=== PATIENT | female | born 1940 | race Caucasian/White ===

== ENCOUNTER 2017-01-21 13:30 | Observation (INO) | payer MEDICARE ==
[~2017-01-21] VITALS: Ht 170.2 cm; Wt 147.0 kg
[2017-01-21] VITALS (7 sets, daily range): BP systolic 107–160; BP diastolic 63–75; PULSE 54–66; RESP 16; O2SAT 95–98
[~2017-01-21 13:30] MED LIST: ALPR0.5T8 PO; ASPI-973 PO; ATEN50TA PO; CYCL10TA9 PO; DICY20TA10 PO; DOCU50CA7 PO; FENT1PAT7 TRANSDERM; FENT1PAT9 TOP; FLUT50DI IH; FUR20 PO; HYDR-3740 PO; LOSA100T29 PO; MONT10TA23 PO; MYCC TOP; NAPR220C11 PO; NITR0.4T SL; ONDA-54 SL; PANT40TA3 PO; PARO20TA5 PO; POLY17PO6 PO; PRAM0.5T10 PO; PRAV40TA PO; SULF1TAB34 PO
--- NOTE | 2017-01-21 13:54 | ED.REPORT ---
HPI-Dyspnea / Wheezing Date of Service Jan 21, 2017 ED Provider: Selvin Orr MD 76 y/o female on Aspirin with a hx of CAD (LAD stent placed), catheterization with MOD disease in 04/2016 presents to the ED complaining of shortness of breath that lasts a few minutes, onset 2 days ago. The pt went to Dr. Montes for the same complaint and was sent to the ED for SOB workup and admission. The pt states her noticed it yesterday but she doesn't recall because she has short term memory loss. However, she remembers waking up today with SOB. She could not go back to sleep due to dyspnea. She states her sx worsen when laying down and with exertion, "but it can happen when I'm just sitting too". Associated sx include nausea, mild lower extremity edema and right back pain for a few weeks. She denies chest pain, fever, hematemesis, vomit and diaphoresis. She states she feels significantly better in ED due to nasal canula. Nursing Notes Stated Complaint: SOB/SENT BY CARDIOLOGY OFFICE Chief Complaint: Respiratory Distress Nursing Notes Reviewed: Yes Allergies: Coded Allergies: Penicillins (Verified Allergy, Unknown, RASH, 01/21/17) celecoxib (Verified Allergy, Unknown, 01/21/17) clindamycin (Verified Allergy, Unknown, PALPITATIONS, 01/21/17) codeine (Verified Allergy, Unknown, 01/21/17) erythromycin base (Verified Allergy, Unknown, 01/21/17) gabapentin (Verified Allergy, Unknown, Dizziness, 01/21/17) lisinopril (Verified Allergy, Unknown, COUGH, 01/21/17) meloxicam (Verified Allergy, Unknown, SWELLING, 01/21/17) simvastatin (Verified Allergy, Unknown, TIRED, 01/21/17) Scheduled Aspirin (Aspirin) 81 Mg Tablet 81 MG PO DAILY Atenolol (Atenolol) 100 Mg Tablet 100 MG PO BID Fentanyl 25 mcg/hr Patch (Fentanyl 25 mcg/hr Patch) 1 Each Patch.td72 1 PATCH TRANSDERM Q3D Fluticasone Propionate (Fluticasone Propionate Nasal) 16 Gm [place].susp 2 SPRAY NASAL DAILY Losartan Potassium (Losartan Potassium) 100 Mg Tablet 100 MG PO DAILY Montelukast (Montelukast) 10 Mg Tablet 10 MG PO HS Nystatin (Nystatin) 60 Applic/15 Gm Cream 1 APPLIC TOP TID Pantoprazole DR (Pantoprazole DR) 40 Mg Tablet.dr 40 MG PO DAILY Paroxetine (Paroxetine) 20 Mg Tablet 20 MG PO HS Polyethylene Glycol 3350 (Miralax) 17 Gm Powd.pack 17 GM PO DAILY Pramipexole Dihydrochloride (Pramipexole Dihydrochloride) 0.5 Mg Tablet 0.5 MG PO HS Pravastatin (Pravastatin) 80 Mg Tablet 80 MG PO DAILY Sulfamethoxazole/Trimeth 400-80 mg (Bactrim 400-80 mg) 1 Each Tablet 0.5 TABLET PO DAILY Scheduled PRN Alprazolam (Alprazolam) 0.5 Mg Tablet 0.5 MG PO BID PRN PRN For Anxiety Carboxymethylcellulose Sodium (Refresh Tears) 15 Ml Drops 1-2 DROP BOTH_EYES QID PRN PRN For Eye Irritation Dicyclomine (Dicyclomine) 20 Mg Tablet 20 MG PO TID PRN PRN For GI Cramps Furosemide (Furosemide) 20 Mg Tab 20 MG PO DAILY PRN PRN wt.gain>3lbs Hydrocodone-Acetaminophen 10-325 mg (Hydrocodone-Acetaminophen 10-325 mg) 1 Each Tablet 1-2 TABLET PO TID PRN PRN For Pain Nitroglycerin SL (Nitrostat) 0.4 Mg Tab.subl 0.4 MG SL Q5MIN PRN PRN For Chest Pain Ondansetron (Ondansetron) 8 Mg Tablet 8 MG SL TID PRN PRN For Nausea General Time Seen by MD: 13:48 Chief Complaint Shortness of breath Hx Obtained From: Patient Arrived By: Walk-in Sudden in Onset?: Yes Onset Occurred: 2 days ago Symptom Duration: Since onset Severity: Current: No pain currently Severity: Maximum: No pain Recent Healthcare: Recent doctor visit Similar Sx Previous: No Past Medical History Past Medical History Edema Diverticulitis Chronic back pain anxiety Myocardial infarction Reports: GERD, Hypertension Reports: Depression, Urinary tract infection Past Surgical History hysterectomy Smoking History Former Smoker, Light Tobacco Smoker Social History Alcohol Use: Denies alcohol use Drug Use: Denies drug use Ambulatory Status Independent Review of Systems Constitutional: Denies: Fever Respiratory: Reports: Shortness of breath Cardiovascular: Reports: Edema (mild), Denies: Chest pain Musculoskeletal: Reports: Back pain (right side) Skin: Denies Diaphoresis Complete sys rev & neg: except as marked. GI: Reports: Nausea, Denies: Hematemesis, Vomiting Physical Exam Initial Vital Signs Vital Signs (First) Date Time Temp Pulse Resp B/P Pulse Ox O2 Delivery O2 Flow Rate FiO2 01/21/17 13:43 36.8 61 16 160/69 95 Room Air 01/21/17 15:24 2 Initial VS: Reviewed Head / Eyes: Atraumatic, Normocephalic Abdomen / GI: Soft, Non-tender Extremities: Vascular intact, Neuro intact, No tenderness Skin: Warm, Dry, No cyanosis Neurologic: Alert, Oriented, Nonfocal General/Constitutional: Awake, Alert, Cooperative Neck: Atraumatic, Supple, Full range of motion Respiratory / Chest: Atraumatic, No respiratory distress, No wheezing Diminished breath sounds on the left. Cardiovascular: Heart rate NL, Regular rhythm, Heart sounds NL, No gallop, No murmurs, No rubs Trace bilateral lower extremity edema. Interpretation & Diagnostics Lab Results Interpretation Result Diagram: 01/21/17 1415 01/21/17 1415 Test 01/21/17 14:15 01/21/17 14:16 White Blood Count 9.3th/mm3 (3.8-10.1) Red Blood Count 4.65mil/mm3 (3.90-5.20) Hemoglobin 13.6g/dL (12.0-15.6) Hematocrit 42.3% (35.0-46.0) Mean Corpuscular Volume 91.0fL (81-100) Mean Corpuscular Hemoglobin 29.2pg (27.0-35.0) Mean Corpuscular Hemoglobin Concent 32.2% (32.0-37.0) Red Cell Distribution Width 14.3% (12.3-15.4) Platelet Count 186bil/L (150-400) Neutrophils (%) (Auto) 77.3% (40-74) Lymphocytes (%) (Auto) 14.4% (14-46) Monocytes (%) (Auto) 6.8% (4-12) Eosinophils (%) (Auto) 1.1% (0-5) Basophils (%) (Auto) 0.2% (0-3) Prothrombin Time 11.5sec (8.1-12.5) Prothromb Time International Ratio 1.07ratio D-Dimer 2.04mg/L FEU (<0.50) Sodium Level 140mEq/L (134-144) Potassium Level 4.6mEq/L (3.5-5.2) Chloride Level 101mEq/L (97-108) Carbon Dioxide Level 25mmol/L (18-29) Blood Urea Nitrogen 12mg/dL (8-27) Creatinine 0.49mg/dL (0.57-1.00) Estimat Glomerular Filtration Rate 177mL/min (>59) Glucose Level 114mg/dL (60-99) Calcium Level 9.1mg/dL (8.5-10.1) Magnesium Level 1.9mg/dL (1.6-2.6) Total Bilirubin 0.5mg/dL (0.0-1.2) Aspartate Amino Transf (AST/SGOT) 22U/L (0-50) Alanine Aminotransferase (ALT/SGPT) 15U/L (0-32) Alkaline Phosphatase 68U/L (25-165) Troponin T < 0.010ug/L (0.0-0.011) Pro-B-Type Natriuretic Peptide 486.4pg/mL (0-738) Total Protein 7.0g/dL (6.4-8.4) Albumin 3.8g/dL (3.4-5.0) Hold Spence Top Tube Received (Received) ECG Interpretation ECG Interpretation: Normal sinus rhtyhm. Rate 59. T-wave inversion in AVR and V1 Time: 14:24 Interpreted by: ED physician X-Ray Chest Interpretation Chest Xray Interpretation: IMPRESSION: Left basilar infiltrate or atelectasis. Dictated by: Brad Cesar M.D. on 01/21/2017 at 14:11 Transcribed by: GYAE on 01/21/2017 at 14:18 Approved by: Brad Cesar M.D. on 01/21/2017 at 15:29 View: Portable, 1 view Interpretation / Wet Read by: Interpret - Radiologist CT Chest Interpretation IMPRESSION: 1. No visualized pulmonary embolism. 2. Lungs are clear. Dictated by: Aimee Parra M.D. on 01/21/2017 at 15:19 Approved by: Aimee Parra M.D. on 01/21/2017 at 15:40 Study type: CT pulm angiogram Interpretation / Wet Read by: Interpret - Radiologist Re-Eval/Medical Decision Med Decision/Clinical Course 76-year-old female history of CAD with stent placed 7 by cardiology for admission for dyspnea times several days. Patient reports dyspnea while supine and on activity. Last catheterization with moderate disease April 2016. Troponins are negative. D-dimer is elevated but no PE on CT. Patient will be admitted for ACS rule out. Source of Hx: Old records Re-Evaluation/Progress : Time of Eval: 16:00 Re-Evaluation/Progress Note: Rechecked pt. Discussed lab results, imaging results, diagnosis and plan to admit. Pt understands and agrees with the plan for admission. All questions addressed. Consultation : Referral / Consult Name: Jonathan Bundy MD Consulted With: Hospitalist Call Returned at: 16:34 [employer] Plant Operator: Will see patient, Agrees with eval, Agrees with plan, Accepts admit Counseled Regarding: Diagnosis, Lab results, Need for admission Discharge & Departure Impression: Primary Impression: Chest pain Disposition: ADMITTED TO HOSPITAL Discharge Condition All VS Reviewed: Yes Referrals: Alejandro Rodriguez MD (PCP) Scribe Attestation Portions of this note were transcribed by Rogerio Barahona. I, , personally performed the history, physical exam and medical decision- making;I reviewed and confirmed the accuracy of the information in the transcribed note. Signed by Zhao Rivera. 01/21/17 16:35 copies to: Alejandro Rodriguez MD, Ben M MD Jan 21, 2017 13:54 Rogerio Barahona Jan 21, 2017 14:51
--- NOTE | 2017-01-21 14:19 | DRSVH ---
PROCEDURE: X-RAY CHEST ONE VIEW, PORTABLE ([id number]) INDICATIONS: 76 year-old woman with increasing dyspnea. TECHNIQUE: One view of the chest was acquired. COMPARISON: [facility], CR, CHEST 2VW, 11/04/2016, 2:11 PM. [facility], CR, XR CHEST 1VW (PORTABLE), 01/17/2016, 10:41. FINDINGS: Surgical changes and devices: None. Lungs and pleura: Left basilar opacity may be infiltrate or atelectasis. No pleural effusions or pne umothorax. Lungs are clear. Mediastinum: Mediastinal contours appear normal. Heart size is normal. Bones and chest wall: No suspicious bony lesions. Overlying soft tissues appear unremarkable. IMPRESSION: Left basilar infiltrate or atelectasis. Dictated by: Brad Cesar M.D. on 01/21/2017 at 14:11 Transcribed by: GAYE on 01/21/2017 at 14:18 Approved by: Brad Cesar M.D. on 01/21/2017 at 15:29
[2017-01-21 14:25] LABS: BASOPHILS % (AUTO) 0.2 % (0-3); EOSINOPHILS % (AUTO) 1.1 % (0-5); MONOCYTES % (AUTO) 6.8 % (4-12); Mean Corpuscular Hemoglobin 29.2 pg (27.0-35.0); NEUTROPHILS % (AUTO) 77.3 % (40-74); Platelet Count 186 bil/L (150-400)
[2017-01-21 14:35] LABS: D-Dimer 2.04 mg/L FEU (<0.50); INR 1.07 ratio
[2017-01-21 14:46] LABS: TROPONIN T < 0.010 ug/L (0.0-0.011)
[2017-01-21 14:53] LABS: Magnesium 1.9 mg/dL (1.6-2.6)
[2017-01-21] MEDS ORDERED: ATEN100T PO (15:26)
[2017-01-21] MEDS ORDERED: FLUT16SP NASAL (15:26)
[2017-01-21] MEDS ORDERED: PRAV80TA2 PO (15:28)
[2017-01-21] MEDS ORDERED: CARB15DR74 BOTH_EYES (15:29)
[2017-01-21] MEDS ORDERED: SULF1TAB34 PO (15:29)
--- NOTE | 2017-01-21 15:41 | DRSVH ---
PROCEDURE: CT ANGIO CHEST PULMONARY EMBOLISM ([id number]) INDICATIONS: dyspnea ddimer 2 TECHNIQUE: After the administration of intravenous contrast, 2 mm thick sections acquired from the pulmonary api mariela to the posterior costophrenic angles. 3-dimensional maximum intensity projection (MIP) coronal a nd sagittal reformats were then acquired through the thorax. For radiation dose reduction, the follo wing was used: automated exposure control, adjustment of mA and/or kV according to patient size. COMPARISON: [facility], CT, CT ANGIO CHEST PE, 01/17/2016, 12:59. FINDINGS: Image quality: Excellent. Pulmonary arteries: Pulmonary arteries are normal in size, and demonstrate no intraluminal filling d efects to suggest central pulmonary embolism. Lungs and pleura: Lungs are clear. No pleural effusions or pneumothorax. Central and peripheral ai rways are patent. Mediastinum: Heart size is normal, without pericardial effusion. No mediastinal or hilar adenopathy . Thoracic aorta is normal in caliber and enhancement. Esophagus is normal in caliber, without hiat al hernia. Bones and chest wall: No suspicious bony lesions. Ribs and thoracic spine appear intact throughout. Thyroid gland is unremarkable. No axillary or supraclavicular adenopathy. Abdomen: Visualized upper abdominal solid organs appear normal in the early arterial phase of enhanc ement. IMPRESSION: 1. No visualized pulmonary embolism. 2. Lungs are clear. Dictated by: Aimee Parra M.D. on 01/21/2017 at 15:19 Approved by: Aimee Parra M.D. on 01/21/2017 at 15:40
[2017-01-21] MEDS ORDERED: cefTRIAXone Inj 2,000 MG in Dextrose 5% Minibag Plus 50 ML IV ONE (15:55)
[2017-01-21] MEDS ORDERED: Doxycycline Inj 100 MG in Dextrose 5% 100 ML IV ONE (15:55)
[2017-01-21] MEDS ORDERED: Alum-Mag Hydrox-Simeth 30 mL Suspension PO PRN ×2 (16:35→19:20)
[2017-01-21] MEDS ORDERED: Ondansetron 2 mg/mL 2 mL Inj IVPUSH PRN ×2 (16:35→19:20)
--- NOTE | 2017-01-21 18:44 | NUR ---
Admit: [place] [facility] [place] @ approx 1745. Ambulated to bed. Bed scale weight obtained. Telemetry #14, SB 50s per radiotelegraph operator servicer. Complains of shortness of breath, placed on O2 3L via NC, O2 sat 96%. VSS. Denies pain. Alert & oriented. Bariatric bed, bed rails up x3, low and locked position, call light within reach.
[2017-01-21] MEDS ORDERED: Furosemide 10 mg/mL 4 mL Inj IVPUSH ONE (19:20)
[2017-01-21] MEDS ORDERED: Polyethylene Glycol (PEG) 17 Gm Powder PO PRN (19:20)
--- NOTE | 2017-01-21 19:39 | PCM.HPMED ---
Subjective Date of Service Jan 21, 2017 Primary Provider: Admitting Physician: Jonathan Bundy MD Primary Care Physician: Alejandro Rodriguez MD Attending Physician: Jonathan Bundy MD Chief Complaint: Dyspnea History of Present Illness: 76-year-old woman with a history of MA with LAD stent placed in April 2015, obstructive sleep apnea, diabetes, hypertension, short-term memory loss and chronic back pain who presents emergency department due to ongoing shortness of breath that started 01/19. Per patient, the patient awoke this morning gasping for air and became increasingly dyspneic she went to the bathroom and back to her bed. She admits to being more orthopneic lately, increased weight gain of 18 pounds, increase in edema, and decreasing exercise tolerance. Patient also endorses some intermittent mild to moderate epigastric pain. Patient denies fevers, chills, nausea, vomiting, or chest pain. Patient states that she feels much better with the oxygen on. Unsurprisingly, the patient is unable to identify an etiology for her short-term memory loss. Patient has had one episode of this before, approximately 3 months ago and underwent evaluation for heart failure with a reassuring echo with ejection fraction of 60% with no motion abnormalities or valvular disease. Patient is a [id number] history of smoking notes patient has been having progressively worsening dyspnea for the last 6 months. She uses CPAP during sleep religiously but not during nap times. notes she might have mask leak. Did not have any repeat sleep test or mask refitting in the last 4 years In the ED patient was afebrile and vitals were stable except for some hypertension of 136/67. Lab work was mostly benign except for a glucose of mildly elevated at 114. Troponin negative, pro BMP within limits. Review of chest x-ray and CT reveals questionable engorged vasculature, but no PE Review of Systems: Complete review of symptoms performed; pertinent positives and negatives per history of present illness Allergies Coded Allergies: Penicillins (Verified Allergy, Unknown, RASH, 01/21/17) celecoxib (Verified Allergy, Unknown, 01/21/17) clindamycin (Verified Allergy, Unknown, PALPITATIONS, 01/21/17) codeine (Verified Allergy, Unknown, 01/21/17) erythromycin base (Verified Allergy, Unknown, 01/21/17) gabapentin (Verified Allergy, Unknown, Dizziness, 01/21/17) lisinopril (Verified Allergy, Unknown, COUGH, 01/21/17) meloxicam (Verified Allergy, Unknown, SWELLING, 01/21/17) simvastatin (Verified Allergy, Unknown, TIRED, 01/21/17) Home Medications Aspirin (Aspirin) 81 Mg Tablet 81 MG PO DAILY Atenolol (Atenolol) 100 Mg Tablet 100 MG PO BID Fentanyl 25 mcg/hr Patch (Fentanyl 25 mcg/hr Patch) 1 Each Patch.td72 1 PATCH TRANSDERM Q3D Fluticasone Propionate (Fluticasone Propionate Nasal) 16 Gm [place].susp 2 SPRAY NASAL DAILY Losartan Potassium (Losartan Potassium) 100 Mg Tablet 100 MG PO DAILY Montelukast (Montelukast) 10 Mg Tablet 10 MG PO HS Nystatin (Nystatin) 60 Applic/15 Gm Cream 1 APPLIC TOP TID Pantoprazole DR (Pantoprazole DR) 40 Mg Tablet.dr 40 MG PO DAILY Paroxetine (Paroxetine) 20 Mg Tablet 20 MG PO HS Polyethylene Glycol 3350 (Miralax) 17 Gm Powd.pack 17 GM PO DAILY Pramipexole Dihydrochloride (Pramipexole Dihydrochloride) 0.5 Mg Tablet 0.5 MG PO HS Pravastatin (Pravastatin) 80 Mg Tablet 80 MG PO DAILY Sulfamethoxazole/Trimeth 400-80 mg (Bactrim 400-80 mg) 1 Each Tablet 0.5 TABLET PO DAILY Alprazolam (Alprazolam) 0.5 Mg Tablet 0.5 MG PO BID PRN PRN For Anxiety Carboxymethylcellulose Sodium (Refresh Tears) 15 Ml Drops 1-2 DROP BOTH_EYES QID PRN PRN For Eye Irritation Dicyclomine (Dicyclomine) 20 Mg Tablet 20 MG PO TID PRN PRN For GI Cramps Furosemide (Furosemide) 20 Mg Tab 20 MG PO DAILY PRN PRN wt.gain>3lbs Hydrocodone-Acetaminophen 10-325 mg (Hydrocodone-Acetaminophen 10-325 mg) 1 Each Tablet 1-2 TABLET PO TID PRN PRN For Pain Nitroglycerin SL (Nitrostat) 0.4 Mg Tab.subl 0.4 MG SL Q5MIN PRN PRN For Chest Pain Ondansetron (Ondansetron) 8 Mg Tablet 8 MG SL TID PRN PRN For Nausea PMH Diverticulitis Chronic back pain anxiety Myocardial infarction GERD Hypertension Depression Urinary tract infection Surgical History hysterectomy Family History Patient is unable to remember family history Social History Hx Alcohol Use: No Hx Substance Use: No Hx Tobacco Use: Yes ([id number]-[id number] history) Smoking Status: Former Smoker, Light Tobacco Smoker Living Arrangement: with Family Exam Vital Signs Vital Sign - Last Date Time Temp Pulse Resp B/P Pulse Ox O2 Delivery O2 Flow Rate FiO2 01/21/17 18:33 Supplement Oxygen 01/21/17 18:06 56 01/21/17 17:50 36.5 16 123/72 96 3.00 Exam General: Obese, pleasant, age-appropriate woman in no acute distress HEENT: PERRLA, EOMI, mucous membranes moist, no JVD noted likely due to obesity Lymph: Left submandibular lymphadenopathy but otherwise normal Cardio: Regular rate and rhythm no murmurs appreciated Respiratory: CTA bilaterally with crackles at bases Abdomen: Super morbidly obese, soft, positive bowel sounds all of these are distant due to girth Extremities: Marked pitting edema lower extremities with increased soft tissue around the knee making it difficult to appreciate advancing edema Skin: No rashes Psych: Appropriate mood and affect although easily removed from her current train of thought Neuro: Grossly intact throughout; cranial nerves II through XII intact Lab and Diagnostics Result Diagram: 01/21/17 1415 01/21/17 1415 X-Rays, CTs and MRIs Chest x-ray IMPRESSION: Left basilar infiltrate or atelectasis. Dictated by: Brad Cesar M.D. on 01/21/2017 at 14:11 CT angio IMPRESSION: 1. No visualized pulmonary embolism 2. Lungs are clear. Dictated by: Aimee Parra M.D. on 01/21/2017 at 15:19 Assessment & Plan 76-year-old female who presented with dyspnea on exertion and increased orthopnea, PND, increased weight gain of 18 pounds, and lower extremity edema with a negative CTA for PE. # Dyspnea secondary to suspected diastolic CHF and pulmonary HTN due to EDWARD, ; present admission; ongoing -Patient presents with cardinal symptoms of CHF exacerbation.suspect poorly treated EDWARD or undiagnosed COPD to be the etiology of pulM HTN. states he noted leak from CPAP mask and she does not use CPAP during nap time . -Repeat echo -Lasix 40 mg IV tonight -Cardiac nuclear stress test tomorrow -Trend troponin overnight -TSH and FT4 -Procalcitonin tomorrow morning -Continue statin,ARB,ASA, -Hold beta keegan,resume atenolol after stress test -pulmonary HTN workup outpatient:will need pulmonary function test to see if any undiagnosed COPD and refitting of CPAP mask/repeat sleep study to assess efficacy of CPAP outpatient # Active GERD: Present admission; ongoing -Continue on PPI -Trend troponin # Hypertension; present on admission; stable -Hold atenolol 100 mg by mouth twice a day due to CHF -Continue losartan # Type II diabetes; present medicines; ongoing -A1c ordered -Glucose on presentation was 114 -Will start low correctional # Chronic back pain; present admission; stable -Continue home Vicodin 10 mg -Fenatnyl patch # Depression/anxiety -Continue home alprazolam -Continue paroxetine Disposition: [place] [facility] [place] with expected length of stay greater than 2 minutes due to severity of presenting symptoms, patient treatment, and risk of adverse events. full code Pain Evaluation: Adequate Pain Control VTE Mechanical Devices: Intermittant Pneumatic CD Resuscitation Status: CPR: Attempt Resuscitation Attending Statement patient seen independently ,case discussed with Dr Elliott and agree with history, exam and assessment and plan as outlined above copies to: Alejandro Rodriguez MD,Andres Multani DO Jan 21, 2017 19:39 Jonathan Bundy MD Jan 22, 2017 09:26
[2017-01-21] MEDS ORDERED: ALPRAZolam 0.5 mg Tablet PO PRN (19:55)
[2017-01-21] MEDS ORDERED: HYDROcodone-APAP 10-325 mg PO PRN (19:55)
[2017-01-21] MEDS ORDERED: PARoxetine 20 mg Tablet PO SCH (21:00)
[2017-01-22 01:12] VITALS: BP 136/50; PULSE 63; RESP 16; O2SAT 96
[2017-01-22 02:18] LABS: APPEARANCE,URINE CLEAR (CLEAR,HAZY); COLOR,URINE STRAW (YELLOW); OCCULT BLOOD,URINE NEGATIVE (NEGATIVE); PH,URINE 5.5 (5.0-8.0); UROBILINOGEN,URINE NORMAL (NORMAL)
[2017-01-22 04:49] VITALS: BP 147/69; PULSE 64; RESP 16; O2SAT 95
[2017-01-22 05:39] LABS: BASOPHILS % (AUTO) 0.3 % (0-3); EOSINOPHILS % (AUTO) 1.1 % (0-5); MONOCYTES % (AUTO) 6.5 % (4-12); Mean Corpuscular Volume 90.7 fL (81-100); NEUTROPHILS % (AUTO) 79.1 % (40-74); Platelet Count 210 bil/L (150-400)
[2017-01-22 06:06] VITALS: PULSE 57
[2017-01-22 06:06] LABS: TROPONIN T 0.01 ug/L (0.0-0.011)
[2017-01-22 06:17] LABS: Magnesium 1.8 mg/dL (1.6-2.6)
--- NOTE | 2017-01-22 06:29 | NUR ---
Lasix Pt received IV Lasix at beginning of shift and voided frequently for a few hours. Pt up to BR independently with FWW.
[2017-01-22] MEDS ORDERED: Pantoprazole 40 mg ER24 Tablet PO SCH (08:30)
[2017-01-22] MEDS ORDERED: Polyethylene Glycol (PEG) 17 Gm Powder PO SCH (08:30)
[2017-01-22] MEDS ORDERED: Fluticasone 0.05% 15 Spray/2 Gm 16 Gm Nasal Spray NASAL SCH (08:30)
[2017-01-22 09:14] VITALS: PULSE 60
[2017-01-22 09:29] VITALS: BP 131/74; PULSE 65; RESP 19; O2SAT 95
--- NOTE | 2017-01-22 13:18 | NUR ---
Social Work: Attempted Assessment D: EMR reviewed. Pt is a 76 y/o female Nino for chest pain, pneumonia per H&P. SW attempted to meet with pt at bedside but pt was bathing and not available. Pt's insurance is Medicare and [employer] Supplemental. Pt's PCP is Alejandro Rodriguez MD. Pt's NOK is spouse Freddy Khanna ([phone]). Per in AM multi-disciplinary rounds, pt is anticipated to discharge in 2-3 days. SW will attempt to conduct initial assessment when pt is available. SW will continue to follow. A: TBD P: SW will attempt to conduct initial assessment when pt is available. SW will continue to follow. EVITA Elizondo
[2017-01-22] MEDS ORDERED: HYDROcodone-APAP 10-325 mg PO PRN (14:30)
[2017-01-22 15:17] VITALS: BP 143/67; PULSE 71; RESP 18; O2SAT 97
--- NOTE | 2017-01-22 16:39 | NUR ---
Case Management: CHARLI explained to patient and family at 1630, all questions answered. Signed original placed in chart, pt given a copy. Gabby Krishna RN
--- NOTE | 2017-01-22 17:04 | PCM.DIMED ---
Discharge Instructions Date of Service Jan 22, 2017 Dates of Hospitalization Jan 21, 2017 at 17:07 Discharge Diagnosis Discharge Diagnosis # Dyspnea secondary to suspected diastolic CHF and pulmonary HTN due to EDWARD, ; suspect poorly treated EDWARD or undiagnosed COPD to be the etiology of pulM HTN. # EDWARD on CPAP # Suspected undiagnosed COPD #Suspected OHS # Active GERD: Present admission; ongoing # Hypertension; present on admission; stable # Type II diabetes; present medicines; ongoing # Chronic back pain; present admission; stable # Depression/anxiety Diet Discharge Diet: Low fat, Low Sodium, Heart Healthy Activity Discharge Activity: Limited until seen by PCP Call your provider Call your provider for: Fever or Chills, Shortness of breath, Bleeding, Chest pain, Vomitting, Excessive diarrhea, Weakness (unilateral) Patient Instructions Patient Instructions You were hospitalized due to dyspnea. Etiology of dyspnea probably multifactorial.it seems you have diastolic CHF and pulmonary HTN due to EDWARD, ; I suspect your EDWARD is inadequately treated due to multifunction or mask air leak. I also suspect you might have undiagnosed COPD given extensive history of smoking. You will need pulmonary function test to see if any undiagnosed COPD and refitting of CPAP mask/repeat sleep study to assess efficacy of CPAP outpatient . workers compensation attorney will arrange new PCP follow-up at [facility] residency clinic tomorrow and she will give you a call. Lung function test and repeat sleep study can be arranged by your new PCP ( residents clinic) .i have started you on lasix 20 mg by mouth daily to see if that helps with the dyspnea. Also follow-up with in 2-3 weeks. Follow-up Provider: [facility] Follow-up with PCP in: 1 week Provider: Hellen Montes MD Follow-up in: 2 weeks Jonathan Bundy MD Jan 22, 2017 17:04
[2017-01-22] MEDS ORDERED: FUR20 PO (17:05)
--- NOTE | 2017-01-22 18:07 | NUR ---
Discharge reviewed d/c instructions with pt and family in room including care notes and new prescriptions, pt signed and given originals, copies to chart. IV d/c intact, tele removed. VS stable at d/c, no CP and pt on RA. Pt walked hallway prior to d/c on RA with pulse oximeter on, O2 sat low was 91% with activity. All belongings packed by pt and family in room and taken with them. Pt taken off unit via WC by DIABETES PHYSICIAN, personal walker taken by family. Family to drive pt home.
--- NOTE | 2017-01-22 18:23 | DRSVH ---
PROCEDURE PERFORMED: PHARMACOLOGICAL STRESS AND REST MYOCARDIAL PERFUSION IMAGING WITH GATING TO ASS ESS EJECTION FRACTION AND REGIONAL WALL MOTION. RADIOPHARMACEUTICAL: Stress: 44.7 mCi of technetium-99 tetrofosmin. Rest: 17 mCi of technetium-99 tetrofosmin. INDICATIONS: The patient is a massively obese, elderly female with a history of [place] and LAD stenting in April 2015, admitted with progressive dyspnea and edema. COMPARISON: None. PHARMACOLOGIC STRESS: Per protocol, 0.4 mg of Lexiscan was infused with a normal hemodynamic respons e and provocation of mild dyspnea and head and back pressure but no chest pain. Her resting ECG appe ars normal and there are no ischemic changes with stress. She received 100 mg of aminophylline with complete resolution of her symptoms. There were no arrhythmias. FINDINGS: 1. Raw data: Overall image quality is quite poor because of the patient's body habitus with signifi cant soft tissue that clearly produce significant attenuation and likely affects the interpretation. She was unable to lie prone to assess for any attenuation artifact. There is no obvious increased l albert uptake or post-stress dilatation. 2. Quantitative Gated SPECT: Post-stress ejection fraction is 81% without any regional wall motion abnormalities and specifically the inferior wall has brisk contractility. The resting ejection fract ion is 71% with an end diastolic volume of 93 mL. 3. Myocardial Perfusion Imaging: The post-stress supine images are of fairly poor quality but sugge st a mild perfusion defect in the proximal portion of the inferior wall that extends into the mid and distal inferolateral wall. This would be in a location that would be consistent with diaphragmatic attenuation artifact, although this cannot be assessed because of the absence of prone imaging. Ther e are no other perfusion defects. The resting images are of much greater intensity globally and spec ifically the inferior and inferolateral quiroga have fairly homogeneous tracer activity compared to the other segments. At face value, this would suggest a small- to moderate-size reversible defect in th e inferior and inferolateral quiroga, but the specificity of this finding is markedly reduced because o f the reduced image quality. IMPRESSION: 1. Probable abnormal myocardial perfusion study but with significantly reduced specificity because o f poor image quality. 2. Small- to moderate-size reversible perfusion defect in the proximal and mid inferior and distal i nferolateral segments that on face value, would suggest a possible small to moderate volume of inferi or ischemia, although again, specificity is markedly reduced because of the poor image quality and ob vious soft tissue attenuation seen. 3. Normal left ventricular systolic function without any focal wall motion abnormalities. 4. No angina, ECG changes or arrhythmias with pharmacologic stress. Dictated by: Robert Mena M.D. on 01/22/2017 at 15:05 Transcribed by: ADRIA on 01/22/2017 at 21:23 Approved by: Robert Mena M.D. on 01/25/2017 at 8:49 cc: Alejandro Rodriguez MD
--- NOTE | 2017-01-23 16:37 | NUR ---
[facility] check in at 945AM for 10AM with Called and spoke with patient and let her know that appointment has been made and she is planning to be there and then schedule establishment with the [facility]. 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
--- NOTE | 2017-01-23 17:14 | PCM.DC.MED ---
Discharge Summary Date of Service Jan 23, 2017 Dates of Hospitalization Date of Hospital Admission Jan 21, 2017 at 17:07 Date of Discharge: Jan 22, 2017 Providers: Admitting Physician: Jonathan Wills MD Primary Care Physician: Alejandro Rodriguez MD Attending Physician: Jonathan Wills MD Diagnosis at Time of Discharge Diagnosis at Time of Discharge # Dyspnea secondary to suspected diastolic CHF and pulmonary HTN due to EDWARD, ; suspect poorly treated EDWARD or undiagnosed COPD to be the etiology of pulM HTN. # EDWARD on CPAP # Suspected undiagnosed COPD #Suspected OHS # Active GERD: Present admission; ongoing # Hypertension; present on admission; stable # Type II diabetes; present medicines; ongoing # Chronic back pain; present admission; stable # Depression/anxiety Consultations Discussed with cardiology on the phone Procedures XRay, CTs & MRIs Chest x-ray IMPRESSION: Left basilar infiltrate or atelectasis. Dictated by: Brad Cesar M.D. on 01/21/2017 at 14:11 CT angio IMPRESSION: 1. No visualized pulmonary embolism 2. Lungs are clear. Dictated by: Aimee Parra M.D. on 01/21/2017 at 15:19 Other Diagnostics PROCEDURE PERFORMED: PHARMACOLOGICAL STRESS AND REST MYOCARDIAL PERFUSION IMAGING WITH GATING TO ASSESS EJECTION FRACTION AND REGIONAL WALL MOTION. RADIOPHARMACEUTICAL: Stress: 44.7 mCi of technetium-99 tetrofosmin. Rest: 17 mCi of technetium-99 tetrofosmin. INDICATIONS: The patient is a massively obese, elderly female with a history of [place] and LAD stenting in April 2015, admitted with progressive dyspnea and edema. COMPARISON: None. PHARMACOLOGIC STRESS: Per protocol, 0.4 mg of Lexiscan was infused with a normal hemodynamic response and provocation of mild dyspnea and head and back pressure. Her resting ECG appears normal and there are no ischemic changes with stress. She received 100 mg of aminophylline with complete resolution of her symptoms. There were no arrhythmias. FINDINGS: 1. Raw data: Overall image quality is quite poor because of the patient's body habitus with significant soft tissue shadows that clearly produce significant attenuation and likely affect the interpretation. She was unable to lie prone to assess for any attenuation artifact. There is no obvious increased lung uptake or post-stress dilatation. 2. Quantitative Gated SPECT: Post-stress ejection fraction is 81% without any regional wall motion abnormalities and specifically the inferior wall has brisk contractility. The resting ejection fraction is 71% with an end diastolic volume of 93 mL. 3. Myocardial Perfusion Imaging: The post-stress supine images are of fairly poor quality but suggest a mild perfusion defect in the proximal portion of the inferior wall that extends into the mid and distal inferolateral wall. This would be in a location that would be consistent with diaphragmatic attenuation artifact, although this cannot be assessed because of the absence of prone imaging. There are no other perfusion defects. The resting images are of much greater intensity globally and specifically the inferior and inferolateral quiroga have fairly homogeneous tracer activity compared to the other segments. At face value, this would suggest a small- to moderate-size reversible defect in the inferior and inferolateral quiroga, but the specificity of this finding is markedly reduced because of the reduced image quality. IMPRESSION: 1. Probable abnormal myocardial perfusion study but with significantly reduced specificity because of poor image quality. 2. Small- to moderate-size reversible perfusion defect in the proximal and mid inferior and distal inferolateral segments that, on face value, would suggest a possible small to moderate volume of ischemia, although again, specificity is markedly reduced because of the poor image quality and obvious soft tissue attenuation seen. 3. Normal left ventricular systolic function without any focal wall motion abnormalities9 . 4. No angina, electrocardiogram changes or arrhythmias with pharmacologic stress. Dictated by: Robert Mena M.D. on 01/22/2017 at 15:05 Brief History per HPI 76-year-old woman with a history of AK with LAD stent placed in April 2015, obstructive sleep apnea, diabetes, hypertension, short-term memory loss and chronic back pain who presents emergency department due to ongoing shortness of breath that started 01/19. Per patient, the patient awoke this morning gasping for air and became increasingly dyspneic she went to the bathroom and back to her bed. She admits to being more orthopneic lately, increased weight gain of 18 pounds, increase in edema, and decreasing exercise tolerance. Patient also endorses some intermittent mild to moderate epigastric pain. Patient denies fevers, chills, nausea, vomiting, or chest pain. Patient states that she feels much better with the oxygen on. Unsurprisingly, the patient is unable to identify an etiology for her short-term memory loss. Patient has had one episode of this before, approximately 3 months ago and underwent evaluation for heart failure with a reassuring echo with ejection fraction of 60% with no motion abnormalities or valvular disease. Patient is a [id number] history of smoking notes patient has been having progressively worsening dyspnea for the last 6 months. She uses CPAP during sleep religiously but not during nap times. notes she might have mask leak. Did not have any repeat sleep test or mask refitting in the last 4 years In the ED patient was afebrile and vitals were stable except for some hypertension of 136/67. Lab work was mostly benign except for a glucose of mildly elevated at 114. Troponin negative, pro BMP within limits. Review of chest x-ray and CT reveals questionable engorged vasculature, but no PE Hospital Course 76-year-old female who presented with dyspnea on exertion and increased orthopnea, PND, increased weight gain of 18 pounds, and lower extremity edema with a negative CTA for PE. # Dyspnea secondary to suspected diastolic CHF and pulmonary HTN due to EDWARD, suspected undiagnosed COPD, possible OHS; present admission; ongoing -.suspect poorly treated EDWARD or undiagnosed COPD to be the etiology of pulM HTN. states he noted leak from CPAP mask and she does not use CPAP during nap time . She was also told her CPAP is not functioning properly - echo with pulmonary hypertension -Lasix 40 mg IV was given with some improvement. Patient takes Lasix 20 mg by mouth when necessary if she gains 3 pounds. I will discharge her on Lasix 20 mg by mouth daily standing dose -Cardiac nuclear stress test unremarkable -troponin negative -BNP 486 but patient with morbid obesity BMI 51 -Continue statin,ARB,ASA, -Resume atenolol -pulmonary HTN workup outpatient:will need pulmonary function test to see if any undiagnosed COPD and refitting of CPAP mask/repeat sleep study to assess efficacy of CPAP outpatient -Patient's PCP is retiring and has no PCP currently.SW set up pcp appointment with [facility]. Patient also needs to see developmental behavioral physician outpatient. Discussed with Dr. Montes , he recommends follow-up with cardiology clinic midlevel practitioner if etiology of dyspnea is pulmonary after workup # Active GERD: Present admission; ongoing -Continue on PPI # Hypertension; present on admission; stable - atenolol 100 mg by mouth twice a day due to CHF -Continue losartan # Type II diabetes; present medicines; ongoing -A1c ordered -Glucose on presentation was 114 -Will start low correctional # Chronic back pain; present admission; stable -Continue home Vicodin 10 mg -Fenatnyl patch # Depression/anxiety -Continue home alprazolam -Continue paroxetine Observation status Discharge to home Condition on discharge stable Exam Vital Signs (Last) Date Time Temp Pulse Resp B/P Pulse Ox O2 Delivery O2 Flow Rate FiO2 01/22/17 15:17 36.7 71 18 143/67 97 Nasal Cannula 3.00 Exam General: Obese, pleasant, age-appropriate woman in no acute distress HEENT: PERRLA, EOMI, mucous membranes moist, no JVD noted likely due to obesity Lymph: Left submandibular lymphadenopathy but otherwise normal Cardio: Regular rate and rhythm no murmurs appreciated Respiratory: CTA bilaterally with crackles at bases Abdomen: Super morbidly obese, soft, positive bowel sounds all of these are distant due to girth Extremities: Marked pitting edema lower extremities with increased soft tissue around the knee making it difficult to appreciate advancing edema Skin: No rashes Psych: Appropriate mood and affect although easily removed from her current train of thought Neuro: Grossly intact throughout; cranial nerves II through XII intact Test 01/21/17 14:15 01/21/17 14:16 01/22/17 02:06 01/22/17 05:15 Prothrombin Time 11.5sec (8.1-12.5) Prothromb Time International Ratio 1.07ratio D-Dimer 2.04mg/L FEU (<0.50) Pro-B-Type Natriuretic Peptide 486.4pg/mL (0-738) Thyroid Stimulating Hormone (TSH) 1.450uIU/mL (0.450-4.500) Free Thyroxine 1.20ng/dL (0.82-1.77) Hold Spence Top Tube Received (Received) Urine Color Straw (YELLOW) Urine Appearance Clear (CLEAR,HAZY) Urine pH 5.5 (5.0-8.0) Urine Specific [place] 1.005 (1.003-1.035) Urine Protein Negativemg/dL (NEG,TRACE) Urine Glucose (UA) Negativemg/dL (NEGATIVE) Urine Ketones Negativemg/dL (NEGATIVE) Urine Occult Blood Negative (NEGATIVE) Urine Nitrite Negative (NEGATIVE) Urine Bilirubin Negative (NEGATIVE) Urine Urobilinogen Normalmg/dL (NORMAL) Urine Leukocyte Esterase Small (NEGATIVE) Urine RBC 0-2/hpf (0-2) Urine WBC 0-5/hpf (0-5) Urine Epithelial Cells Occasional/hpf (NONE-MOD) Urine Crystals None seen (NONE SEEN) Urine Bacteria Few/hpf (NONE-FEW) Urine Hyaline Casts Rare/lpf (NONE) Urine Granular Casts None seen (NONE SEEN) Urine Waxy Casts None seen (NONE SEEN) Urine Red Blood Cell Casts None seen (NONE SEEN) Urine White Blood Cell Casts None seen (NONE SEEN) Urine Mucus None seen (None Seen) Urine Trichomonas None seen (NONE SEEN) Urine Yeast None (NONE SEEN) Urinalysis Comment None Urine Culture Reflexed Indicated White Blood Count 11.4th/mm3 (3.8-10.1) Red Blood Count 4.83mil/mm3 (3.90-5.20) Hemoglobin 14.0g/dL (12.0-15.6) Hematocrit 43.8% (35.0-46.0) Mean Corpuscular Volume 90.7fL (81-100) Mean Corpuscular Hemoglobin 29.0pg (27.0-35.0) Mean Corpuscular Hemoglobin Concent 32.0% (32.0-37.0) Red Cell Distribution Width 14.2% (12.3-15.4) Platelet Count 210bil/L (150-400) Neutrophils (%) (Auto) 79.1% (40-74) Lymphocytes (%) (Auto) 12.8% (14-46) Monocytes (%) (Auto) 6.5% (4-12) Eosinophils (%) (Auto) 1.1% (0-5) Basophils (%) (Auto) 0.3% (0-3) Sodium Level 142mEq/L (134-144) Potassium Level 4.4mEq/L (3.5-5.2) Chloride Level 98mEq/L (97-108) Carbon Dioxide Level 30mmol/L (18-29) Blood Urea Nitrogen 14mg/dL (8-27) Creatinine 0.58mg/dL (0.57-1.00) Estimat Glomerular Filtration Rate 146mL/min (>59) Glucose Level 127mg/dL (60-99) Calcium Level 9.9mg/dL (8.5-10.1) Magnesium Level 1.8mg/dL (1.6-2.6) Total Bilirubin 0.5mg/dL (0.0-1.2) Aspartate Amino Transf (AST/SGOT) 23U/L (0-50) Alanine Aminotransferase (ALT/SGPT) 15U/L (0-32) Alkaline Phosphatase 72U/L (25-165) Troponin T 0.010ug/L (0.0-0.011) Total Protein 7.1g/dL (6.4-8.4) Albumin 4.2g/dL (3.4-5.0) Procalcitonin 0.03ng/mL (0.00-0.08) Discharge Medications Discharge Medications Aspirin (Aspirin) 81 Mg Tablet 81 MG PO DAILY (Reported) Atenolol (Atenolol) 100 Mg Tablet 100 MG PO BID (Reported) Fentanyl 25 mcg/hr Patch (Fentanyl 25 mcg/hr Patch) 1 Each Patch.td72 1 PATCH TRANSDERM Q3D (Reported) Fluticasone Propionate (Fluticasone Propionate Nasal) 16 Gm [place].susp 2 SPRAY NASAL DAILY (Reported) Furosemide (Furosemide) 20 Mg Tab 20 MG PO DAILY Prescribed by: JONATHAN WILLS MD Losartan Potassium (Losartan Potassium) 100 Mg Tablet 100 MG PO DAILY (Reported ) Montelukast (Montelukast) 10 Mg Tablet 10 MG PO HS Prescribed by: HUGO BARTON Nystatin (Nystatin) 60 Applic/15 Gm Cream 1 APPLIC TOP TID (Reported) Pantoprazole DR (Pantoprazole DR) 40 Mg Tablet.dr 40 MG PO DAILY (Reported) Paroxetine (Paroxetine) 20 Mg Tablet 20 MG PO HS (Reported) Polyethylene Glycol 3350 (Miralax) 17 Gm Powd.pack 17 GM PO DAILY (Reported) Pramipexole Dihydrochloride (Pramipexole Dihydrochloride) 0.5 Mg Tablet 0.5 MG PO HS (Reported) Pravastatin (Pravastatin) 80 Mg Tablet 80 MG PO DAILY (Reported) As needed Alprazolam (Alprazolam) 0.5 Mg Tablet 0.5 MG PO BID PRN PRN For Anxiety ( Reported) Carboxymethylcellulose Sodium (Refresh Tears) 15 Ml Drops 1-2 DROP BOTH_EYES QID PRN PRN For Eye Irritation (Reported) Dicyclomine (Dicyclomine) 20 Mg Tablet 20 MG PO TID PRN PRN For GI Cramps ( Reported) Hydrocodone-Acetaminophen 10-325 mg (Hydrocodone-Acetaminophen 10-325 mg) 1 Each Tablet 1-2 TABLET PO TID PRN PRN For Pain (Reported) Nitroglycerin SL (Nitrostat) 0.4 Mg Tab.subl 0.4 MG SL Q5MIN PRN PRN For Chest Pain (Reported) Ondansetron (Ondansetron) 8 Mg Tablet 8 MG SL TID PRN PRN For Nausea (Reported) Followup Plan Disposition: Home Discharge Diet: Low fat, Low Sodium, Heart Healthy Discharge Activity: Limited until seen by PCP Patient Instructions You were hospitalized due to dyspnea. Etiology of dyspnea probably multifactorial.it seems you have diastolic CHF and pulmonary HTN due to EDWARD, ; I suspect your EDWARD is inadequately treated due to multifunction or mask air leak. I also suspect you might have undiagnosed COPD given extensive history of smoking. You will need pulmonary function test to see if any undiagnosed COPD and refitting of CPAP mask/repeat sleep study to assess efficacy of CPAP outpatient . 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 Lung function test and repeat sleep study can be arranged by your new PCP ( residents clinic) .i have started you on lasix 20 mg by mouth daily to see if that helps with the dyspnea. Also follow-up with in 2-3 weeks. Follow-up Provider: [facility] Follow-up with PCP in: 1 week Provider: Hellen Montes MD Follow-up in: 2 weeks copies to: Hellen Montes MD; [facility] Jonathan Wills MD Jan 23, 2017 17:14
== END 2017-01-22 18:05 | disposition home or self-care (01) ==
LOC: SED 13:30 → MPC 17:07 → INTOOBSV 17:07
PROVIDERS: ADMIT Internal Medicine; ATTEND Internal Medicine
DX: I50.30 Unspecified diastolic (congestive) heart failure (principal); R06.00 Dyspnea, unspecified; I27.2 Other secondary pulmonary hypertension; G47.33 Obstructive sleep apnea (adult) (pediatric); K21.9 Gastro-esophageal reflux disease without esophagitis; I10 Essential (primary) hypertension; E11.9 Type 2 diabetes mellitus without complications; M54.9 Dorsalgia, unspecified; F41.8 Other specified anxiety disorders; I25.10 Atherosclerotic heart disease of native coronary artery without angina pectoris; R60.9 Edema, unspecified; K57.30 Diverticulosis of large intestine without perforation or abscess without bleeding; R41.3 Other amnesia; I25.2 Old myocardial infarction; E66.01 Morbid (severe) obesity due to excess calories; Z68.43 Body mass index [BMI] 50.0-59.9, adult; Z95.5 Presence of coronary angioplasty implant and graft; Z79.82 Long term (current) use of aspirin; Z88.0 Allergy status to penicillin; Z88.8 Allergy status to other drugs, medicaments and biological substances; Z90.710 Acquired absence of both cervix and uterus; Z87.891 Personal history of nicotine dependence; Z79.84 Long term (current) use of oral hypoglycemic drugs
CPT/HCPCS: 36415; 71010; 71275; 78452; 80053; 81000; 83735; 83880; 84145; 84439; 84443; 84484; 85025; 85378; 85610; 87040; 87086; 87088; 93005; 93017; 96365; 96375; 99285; A9502; G0463; J0280; J0696; J1940; J2785; Q9967

== ENCOUNTER 2017-02-13 01:03 | Day surgery (SDC) | payer MEDICARE ==
[2017-02-13] VITALS (13 sets, daily range): BP systolic 123–169; BP diastolic 52–104; PULSE 58–67; RESP 13–23; O2SAT 92–95
[~2017-02-13] VITALS: Ht 170.2 cm; Wt 143.9 kg
[~2017-02-13 01:03] MED LIST changes: +ALBU8.5H2 INHALATION; +ATEN100T PO; -ATEN50TA PO; +CARB15DR74 BOTH_EYES; -CYCL10TA9 PO; -DOCU50CA7 PO; -FENT1PAT9 TOP; -FLUT50DI IH; -MYCC TOP; -NAPR220C11 PO; -PRAV40TA PO; +PRAV80TA2 PO; -SULF1TAB34 PO
[2017-02-13 08:57] LABS: BASOPHILS % (AUTO) 0.5 % (0-3); EOSINOPHILS % (AUTO) 1.8 % (0-5); MONOCYTES % (AUTO) 9.7 % (4-12); Mean Corpuscular Volume 91.3 fL (81-100); NEUTROPHILS % (AUTO) 71.8 % (40-74); Platelet Count 203 bil/L (150-400)
[2017-02-13] MEDS ORDERED: FLUT16SP NS (09:06)
[2017-02-13] MEDS ORDERED: CLIN-77 PO (09:06)
[2017-02-13] MEDS ORDERED: Heparin 1,000 Units/500 mL NS Premix IV ONE (12:01)
[2017-02-13] MEDS ORDERED: Heparin 10,000 Unit/1,000 mL NS Premix IV ONE (12:02)
[2017-02-13] MEDS ORDERED: fentaNYL-PF 50 mCg/mL 2 mL Inj ONE ×3 (12:29→13:36)
--- NOTE | 2017-02-13 13:25 | NUR ---
Arrival to [facility]/Pre heart cath Pt arrived to [facility] at 0820 via wheelchair, accompanied by . IVs started X2 and labs sent. Admission completed. Reece placed due to pt w/ urinary frequency and increased body weight. Pt taken to laborer heading at 1220 in stable condition.
[2017-02-13] MEDS ORDERED: FUR20 PO (18:02)
[2017-02-13] MEDS ORDERED: MONT10TA23 PO (18:02)
--- NOTE | 2017-02-13 19:00 | CS94 ---
[address] [address] DIAGNOSTIC CARDIAC CATHETERIZATION PATIENT: DIANE LUEVANO : 1940 MR#: [id number] ADMIT: 02/13/2017 JOB ID: [id number] SERVICE DATE: 02/13/2017 PROCEDURE PERFORMED: Left heart catheterization with coronary angiography. INDICATIONS: A woman with chest heaviness with exertion with an abnormal stress test suggesting inferior/inferolateral ischemia. DESCRIPTION OF PROCEDURE: Informed consent was obtained. Patient brought to catheterization laboratory. Bilateral groins were prepped and draped in sterile fashion. The area of the right femoral artery was anesthetized with lidocaine. Using modified Seldinger technique and a micropuncture kit, access was obtained and a long 5-[place] sheath was advanced. Next, a 5-[place] JL4 catheter was advanced over a wire and used to cannulate the left coronary artery and angiographic views obtained. This catheter was removed and a 5-[place] Citizen JR4 catheter was advanced over a wire and used to cannulate the right coronary artery and angiographic views obtained. This catheter was removed and an angled pigtail catheter was advanced to the left ventricle under fluoroscopic guidance. Left ventricular pressures were obtained and following pullback aortic pressure tracings were obtained. The case was ended. An angiographic view of the right femoral access site was reviewed prior to achieving hemostasis with manual compression. There were no complications. FINDINGS: Coronaries: 1. Left main: This has no significant disease. 2. Left anterior descending artery: There is an approximately 50% to 60% lesion which was previously appreciated on the catheterization of 2015. 3. Circumflex artery: This has mild luminal irregularities. 4. Right coronary artery: I do not appreciate any significant narrowings. This appears to be stable compared to prior cardiac catheterizations. HEMODYNAMICS: End-diastolic pressures in the range of 12-25 as the patient has significant variability with her sleep apnea (these pressures were obtained post contrast). IMPRESSION: Findings appear stable compared to prior cardiac catheterization of 2014. There are no high-grade right coronary artery stenoses to substantiate the findings of inferior inferolateral ischemia on the stress test. [facility]
--- NOTE | 2017-02-13 19:32 | NUR ---
Discharge Bedrest complete at 1800. VSS. Right groin without bleeding or hematoma. Reece discontinued intact. c/o back pain but no groin pain. Up to bathroom and in hager with walker without change in groin. Back pain improved with movement. Discharge instructions given, see sheets. Pt. and verbalize understanding. IVs discontinued intact. Discharged via w/c with family and all belongings in no distress at 1900.
== END 2017-02-13 23:59 | disposition home or self-care (01) ==
LOC: SOUO 01:03
PROVIDERS: ATTEND Internal Medicine
DX: I25.119 Atherosclerotic heart disease of native coronary artery with unspecified angina pectoris (principal); R94.39 Abnormal result of other cardiovascular function study; G47.33 Obstructive sleep apnea (adult) (pediatric); I10 Essential (primary) hypertension; G25.81 Restless legs syndrome; E66.9 Obesity, unspecified; Z87.891 Personal history of nicotine dependence; E78.00 Pure hypercholesterolemia, unspecified; Z95.5 Presence of coronary angioplasty implant and graft; Z79.82 Long term (current) use of aspirin; Z68.42 Body mass index [BMI] 45.0-49.9, adult
CPT/HCPCS: 36415; 80048; 85025; 93005; 93458; 99152; 99153; C1769; C1894; J1200; J1644; J2060; J2250; J3010; Q9967